=== PATIENT | female | born 1985 | race African-American/Black ===

== ENCOUNTER 2022-12-21 09:45 | Day surgery (SDC) | payer OTHER ==
[~2022-12-21 09:45] MED LIST: OMEPRAZOLE DR40 MG PO
[2022-12-21 12:51] VITALS: BP 132/82
== END 2022-12-21 12:40 | disposition home or self-care (01) | DRG 368 ==
LOC: ENDO 09:45 → ORM 13:15 → ENDO 13:15 → ORM 14:25
PROVIDERS: ATTEND Internal Medicine Gastroenterology
PROC: 0D738ZZ Dilation of Lower Esophagus, Via Natural or Artificial Opening Endoscopic (ICD-10-PCS; principal; 2022-12-21)
PROC: 0DB98ZX Excision of Duodenum, Via Natural or Artificial Opening Endoscopic, Diagnostic (ICD-10-PCS; 2022-12-21)
PROC: 0DB78ZX Excision of Stomach, Pylorus, Via Natural or Artificial Opening Endoscopic, Diagnostic (ICD-10-PCS; 2022-12-21)
PROC: 0DB28ZX Excision of Middle Esophagus, Via Natural or Artificial Opening Endoscopic, Diagnostic (ICD-10-PCS; 2022-12-21)
PROC: 0DB38ZX Excision of Lower Esophagus, Via Natural or Artificial Opening Endoscopic, Diagnostic (ICD-10-PCS; 2022-12-21)
DX: K21.01 Gastro-esophageal reflux disease with esophagitis, with bleeding (principal); K29.51 Unspecified chronic gastritis with bleeding; K22.2 Esophageal obstruction